=== PATIENT | female | born 1995 | race Caucasian/White ===

== ENCOUNTER 2022-04-24 16:09 | Emergency (ER) | payer OTHER ==
[~2022-04-24] VITALS: Ht 172.7 cm; Wt 127.6 kg
[2022-04-24 16:38] VITALS: BP 175/94
[2022-04-24] MEDS ORDERED: IBUPROFEN 600 MG TAB PO ONE (17:45)
--- NOTE | 2022-04-24 18:00 | NUR ---
PER ER MID LEVEL, L WRIST THUMB SPICA VELCRO SPLINT APPLIED AND CLAUDIA WRAP X 1
[2022-04-24 18:20] VITALS: BP 175/94
--- NOTE | 2022-04-24 18:20 | NUR ---
Patient discharged BY GILDA VASQUEZ with v/s stable. Written and verbal after care instructions given and explained. Patient alert, oriented and verbalized understanding of instructions. Ambulatory with steady gait. All questions addressed prior to discharge. ID band removed. Patient advised to follow up with PMD. Rx of IBUPROFEN given. Patient educated on indication of medication including possible reaction and side effects. Opportunity to ask questions provided and answered. Addendum: 04/24/22 at 1855 [facility]
[2022-04-24] MEDS ORDERED: IBUP-2213 PO (18:30)
== END 2022-04-24 18:20 | disposition home or self-care (01) ==
LOC: MED 16:09
DX: S66.412A Strain of intrinsic muscle, fascia and tendon of left thumb at wrist and hand level, initial encounter (principal); S63.602A Unspecified sprain of left thumb, initial encounter; S83.92XA Sprain of unspecified site of left knee, initial encounter; V49.88XA Car occupant (driver) (passenger) injured in other specified transport accidents, initial encounter; Y93.89 Activity, other specified; Y92.488 Other paved roadways as the place of occurrence of the external cause; Y99.8 Other external cause status
CPT/HCPCS: 73110; 73140; 73562; 99284

== ENCOUNTER 2024-03-20 20:48 | Emergency (ER) | payer SELFPAY ==
[~2024-03-20] VITALS: Ht 172.7 cm; Wt 133.8 kg
[~2024-03-20 20:48] MED LIST: IBUP-2213 PO
[2024-03-20 21:02] VITALS: BP 150/86; PULSE 107; RESP 16; TEMP 98.9; O2SAT 99
[2024-03-20 21:17] VITALS: BP 150/86; PULSE 107; RESP 16; TEMP 98.9
[2024-03-20 21:54] VITALS: O2SAT 99
[2024-03-20] MEDS: MORPHINE SULFATE 4 MG/ML SYR IM ONE (22:55)
[2024-03-20] MEDS: LIDOCAINE/EPI 1% 1:100000 20 ML VIAL INJ ONE (23:01)
[2024-03-20] MEDS ORDERED: SULF-58 PO (23:25)
[2024-03-20] MEDS ORDERED: CEPH-588 PO (23:25)
== END 2024-03-20 23:33 | disposition home or self-care (01) ==
LOC: MED 20:48
DX: L02.211 Cutaneous abscess of abdominal wall (principal); L03.311 Cellulitis of abdominal wall; Z79.899 Other long term (current) drug therapy
CPT/HCPCS: 10060; 96372; 99284; J2001; J2270

== ENCOUNTER 2024-03-22 09:33 | Emergency (ER) | payer MEDICAID ==
[~2024-03-22] VITALS: Ht 172.7 cm; Wt 131.5 kg
[~2024-03-22 09:33] MED LIST changes: +CEPH-588 PO; +SULF-58 PO
[2024-03-22 09:54] VITALS: BP 115/78; PULSE 88; RESP 18; TEMP 97.3; O2SAT 99
[2024-03-22] MEDS: KETOROLAC 60 MG/2 ML VIAL IM ONE (10:31)
[2024-03-22 10:38] VITALS: BP 115/78; PULSE 88; RESP 18; TEMP 97.3; O2SAT 99
== END 2024-03-22 10:38 | disposition home or self-care (01) ==
LOC: MED 09:33
DX: L02.211 Cutaneous abscess of abdominal wall (principal); Z48.00 Encounter for change or removal of nonsurgical wound dressing; Z79.899 Other long term (current) drug therapy
CPT/HCPCS: 96372; 99283; J1885